=== PATIENT | female | born 1995 | race Caucasian/White ===

== ENCOUNTER 2019-10-24 10:41 | Outpatient (CLI) | payer OTHER ==
--- NOTE | 2019-10-24 11:04 | RAD ---
Right foot 3 views HISTORY: Right foot pain. FINDINGS: Lisfranc joint alignment is anatomic. Plantar arch is maintained. No acute fracture, dislocation, or aggressive osseous erosions. IMPRESSION : No abnormalities are demonstrated.
== END 2019-10-24 10:42 | disposition home or self-care (01) ==
LOC: BICRAD 10:41
PROVIDERS: ATTEND Family Medicine
DX: M79.671 Pain in right foot (principal)